=== PATIENT | female | born 2000 | race Caucasian/White ===

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

== ENCOUNTER 2019-04-13 19:22 | Emergency (ER) | payer MEDICAID ==
[~2019-04-13] VITALS: Ht 165.1 cm; Wt 54.9 kg
[~2019-04-13 19:22] MED LIST changes: +PHEN-824 PO
[2019-04-13 19:34] VITALS: BP 112/68
== END 2019-04-13 21:00 | disposition home or self-care (01) ==
LOC: ER 19:22
DX: S16.1XXA Strain of muscle, fascia and tendon at neck level, initial encounter (principal); J45.909 Unspecified asthma, uncomplicated; F41.9 Anxiety disorder, unspecified; F32.9 Major depressive disorder, single episode, unspecified; F12.90 Cannabis use, unspecified, uncomplicated; Z79.899 Other long term (current) drug therapy; X50.1XXA Overexertion from prolonged static or awkward postures, initial encounter; Y93.89 Activity, other specified; Y92.89 Other specified places as the place of occurrence of the external cause; Y99.8 Other external cause status
CPT/HCPCS: 99281

== ENCOUNTER 2019-12-05 00:39 | Emergency (ER) | payer MEDICAID ==
[~2019-12-05] VITALS: Ht 165.1 cm; Wt 53.0 kg
[2019-12-05 00:41] VITALS: BP 121/80
[2019-12-05] MEDS ORDERED: HYDROcodone/acetaminophen 10/325mg tab PO ONE (01:55)
[2019-12-05] MEDS ORDERED: ondansetron 4mg rapidly disintigrating tab PO ONE (01:55)
[2019-12-05] MEDS ORDERED: LIDOcaine 1% W/epiNEPHrine 1:200,000 10ml vial IJ ONE ×2 (02:15→02:30)
[2019-12-05] MEDS ORDERED: sulfamethoxazole/trimethoprim DS (800/160mg) tablet PO ONE (02:50)
[2019-12-05] MEDS ORDERED: SULF1TAB48 PO (03:36)
== END 2019-12-05 04:03 | disposition home or self-care (01) ==
LOC: ER 00:39
DX: S61.511A Laceration without foreign body of right wrist, initial encounter (principal); J45.909 Unspecified asthma, uncomplicated; F41.9 Anxiety disorder, unspecified; F32.9 Major depressive disorder, single episode, unspecified; F12.90 Cannabis use, unspecified, uncomplicated; Z79.899 Other long term (current) drug therapy; W25.XXXA Contact with sharp glass, initial encounter; Y93.89 Activity, other specified; Y92.009 Unspecified place in unspecified non-institutional (private) residence as the place of occurrence of the external cause; Y99.8 Other external cause status
CPT/HCPCS: 12001; 99284

== ENCOUNTER 2019-12-11 17:17 | Emergency (ER) | payer MEDICAID ==
[~2019-12-11] VITALS: Ht 162.6 cm; Wt 50.0 kg
[~2019-12-11 17:17] MED LIST changes: +SULF1TAB48 PO
[2019-12-11 17:36] VITALS: BP 127/92
== END 2019-12-11 17:39 | disposition home or self-care (01) ==
LOC: ER 17:18
DX: S61.511D Laceration without foreign body of right wrist, subsequent encounter (principal); J45.909 Unspecified asthma, uncomplicated; F12.90 Cannabis use, unspecified, uncomplicated; W25.XXXD Contact with sharp glass, subsequent encounter
CPT/HCPCS: 99281

== ENCOUNTER 2020-06-07 16:43 | Emergency (ER) | payer MEDICAID ==
[~2020-06-07] VITALS: Ht 165.1 cm; Wt 61.4 kg
[~2020-06-07 16:43] MED LIST changes: -SULF1TAB48 PO
[2020-06-07 16:58] VITALS: BP 128/75
[2020-06-07] MEDS ORDERED: acetaminophen 325mg tablet PO ONE (17:30)
[2020-06-07] MEDS ORDERED: ringers solution, lactated 1000ml IV soln IV ONE (17:30)
[2020-06-07 17:56] LABS: CLARITY,URINE SLIGHTLY CLOUDY (Clear); COLOR,URINE YELLOW (Yellow); GLUCOSE, URINE NEGATIVE (Neg); KETONES,URINE TRACE mg/dl (Neg); LEUKOCYTE ESTERASE ,URINE NEGATIVE (Neg); NITRITES, URINE NEGATIVE (Neg); OCCULT BLOOD,URINE NEGATIVE (Neg); PH,URINE 5.5 (4.8-8.0); PROTEIN,URINE NEGATIVE (Neg); UROBILINOGEN,URINE 0.2 E.U/dL (0.2-1.0)
[2020-06-07 17:59] LABS: BASOPHILS % (AUTO) 0.4 % (0-1); EOSINOPHILS % (AUTO) 0.4 % (0-6); HEMATOCRIT 41.5 % (35.0-45.0); LYMPHOCYTES # (AUTO) 1.4 X10'3 (1.1-4.8); LYMPHOCYTES % (AUTO) 30.5 % (21-51); MEAN CORPUSCULAR HEMOGLOBIN 31.3 PG (27.0-31.0); MEAN CORPUSCULAR HGB CONC 33.8 g/dL (33.0-36.5); MEAN CORPUSCULAR VOLUME 92.6 FL (78-98); MEAN PLATELET VOLUME 7.8 FL (7.4-10.4); MONOCYTES # (AUTO) 0.6 X10'3 (0-0.9); MONOCYTES % (AUTO) 13.1 % (2-12); NEUTROPHILS # (AUTO) 2.5 X10'3 (1.8-7.7); NEUTROPHILS % (AUTO) 55.6 % (42-75); PLATELET COUNT 185 X10'3 (140-440); RED BLOOD COUNT 4.48 X10'6 (4.20-5.60); WHITE BLOOD COUNT 4.5 X10'3 (4.5-11.0)
[2020-06-07 18:01] LABS: UA COLLECTION TYPE CLN CATCH MIDSTREAM
[2020-06-07 18:02] LABS: BACTERIA,URINE FEW /HPF (Neg); MUCUS STRANDS FEW /LPF (Neg); RBC,URINE 0-2 /HPF (0-2); SQUAMOUS EPITHELIAL CELL,UR MANY /LPF (FEW); WBC,URINE NONE SEEN /HPF (0-4)
[2020-06-07 18:08] LABS: ALANINE AMINOTRANSFERASE 21 U/L (12-78); ALBUMIN 3.7 G/DL (3.4-5.0); ALBUMIN/GLOBULIN RATIO 1.1 (1.1-1.5); ALKALINE PHOSPHATASE 66 IU/L (20-180); ANION GAP 9 (8-16); ASPARTATE AMINO TRANSFERASE 14 U/L (10-37); BILIRUBIN,TOTAL 0.2 MG/DL (0.1-1.0); BLOOD UREA NITROGEN 7 MG/DL (7-18); BUN/CREATININE RATIO 14.6 (6.6-38.0); CALCIUM 8.6 MG/DL (8.5-10.1); CHLORIDE 106 MMOL/L (99-107); CREATININE 0.48 MG/DL (0.40-0.90); GLUCOSE 61 MG/DL (70-104); POTASSIUM 3.7 MMOL/L (3.5-5.1); SODIUM 140 MMOL/L (135-145); TOTAL CARBON DIOXIDE 25.2 MMOL/L (24-32); TOTAL PROTEIN 7.2 G/DL (6.4-8.2); eGFR > 90 ML/MIN
== END 2020-06-07 19:09 | disposition home or self-care (01) ==
LOC: ER 16:43
DX: U07.1 COVID-19 (principal); R09.89 Other specified symptoms and signs involving the circulatory and respiratory systems; R51.9 Headache, unspecified; J45.909 Unspecified asthma, uncomplicated; F41.9 Anxiety disorder, unspecified; F32.9 Major depressive disorder, single episode, unspecified; F12.90 Cannabis use, unspecified, uncomplicated; Z79.899 Other long term (current) drug therapy
CPT/HCPCS: 36415; 80053; 81001; 85025; 87635; 96360; 99283; J7120

== ENCOUNTER 2023-06-05 01:18 | Emergency (ER) | payer MEDICAID ==
[~2023-06-05] VITALS: Ht 165.1 cm; Wt 65.0 kg
[2023-06-05 01:21] VITALS: BP 134/93; PULSE 107; TEMP 97.9; O2SAT 100
--- NOTE | 2023-06-05 01:34 | NUR ---
PER DR TORRE, BETADINE TINGED NS SOAK NEEDED FOR FINGER TO REMOVE MUSTARD. PT CURRENTLY SOAKING.
[2023-06-05] MEDS ORDERED: acetaminophen 325mg tablet PO ONE (01:45)
[2023-06-05] MEDS ORDERED: ketorolac trometh inj. 60 MG/2 ML VIAL IM ONE (01:45)
[2023-06-05 02:16] VITALS: RESP 18
[2023-06-05] MEDS ORDERED: LIDOcaine/PRILOcaine 5gm cream TP ONE (02:35)
[2023-06-05] MEDS ORDERED: bacitracin 15gm ointment TP ONE (02:35)
[2023-06-05] MEDS ORDERED: HYDR-3965 PO (02:36)
== END 2023-06-05 02:57 | disposition home or self-care (01) ==
LOC: ER 01:18
DX: T23.222A Burn of second degree of single left finger (nail) except thumb, initial encounter (principal); F31.9 Bipolar disorder, unspecified; J45.909 Unspecified asthma, uncomplicated; F12.10 Cannabis abuse, uncomplicated; Z79.899 Other long term (current) drug therapy; X08.8XXA Exposure to other specified smoke, fire and flames, initial encounter; Y93.89 Activity, other specified; Y92.89 Other specified places as the place of occurrence of the external cause; Y99.8 Other external cause status
CPT/HCPCS: 16020; 96372; 99284; J1885; 16000; A6449